=== PATIENT | male | born 1955 ===

== ENCOUNTER 2021-10-16 04:35 | Day surgery (SDC) | payer OTHER ==
[2021-10-13 14:13] VITALS: BMI 25.0
[2021-10-16 10:43] VITALS: TEMP 97.1
[2021-10-16 11:19] VITALS: BP 111/40; PULSE 66
== END 2021-10-16 11:21 | disposition home or self-care (01) ==
LOC: JASU-ENDO 04:35
PROVIDERS: ATTEND Internal Medicine Gastroenterology
PROC: 0DJD8ZZ Inspection of Lower Intestinal Tract, Via Natural or Artificial Opening Endoscopic (ICD-10-PCS; principal; 2021-10-16 10:30)
DX: Z12.11 Encounter for screening for malignant neoplasm of colon (principal)